=== PATIENT | female | born 1930 | race Caucasian/White ===

== ENCOUNTER 2016-11-29 15:50 | Emergency (ER) | payer MEDICARE, OTHER ==
[2016-11-29 15:50] VITALS: BMI 21.6
[2016-11-29 16:09] VITALS: TEMP 98.5
[2016-11-29 16:31] LABS: AUTOMATED BASOPHIL 0.8 % (0-2); AUTOMATED LYMPH 25.4 % (17-44); AUTOMATED MONOCYTE 11.5 % (3-10); AUTOMATED NEUTROPHIL 60.3 % (45-76); MPV 8.2 fL (7.4-10.4)
[2016-11-29 16:41] LABS: BLOOD UREA NITROGEN 11 MG/DL (7-17); CALC CORRECTED 8.9 MG/DL (8.4-10.2); CALCIUM 8.7 MG/DL (8.4-10.2); CALCULATED OSMOLALITY 270 MOs/Kg (270-290); CHLORIDE 103 mEq/L (98-107); GLUCOSE 95 MG/DL (70-99); SODIUM LEVEL 141 mEq/L (137-146); TOTAL PROTEIN 7.2 G/DL (6.3-8.2)
[2016-11-29 16:42] LABS: PARTIAL THROMB. TIME 25.4 SEC (22-35)
--- NOTE | 2016-11-29 17:10 | DIRPT ---
CLINICAL DATA: Shortness of breath. Nonproductive cough. EXAM: CHEST - 2 VIEW COMPARISON: 11/03/2016 FINDINGS: The heart size and mediastinal contours are within normal limits. Stable bibasilar pulmonary scarring. There is no evidence of pulmonary edema, consolidation, pneumothorax, nodule or pleural fluid. The visualized skeletal structures are unremarkable. IMPRESSION: No active disease. Electronically Signed By: Juan Forte M.D. On: 11/29/2016 17:07
--- NOTE | 2016-11-29 17:28 | EDPRACDOC ---
- General Information Chief Complaint: Dyspnea/Resp distress Stated Complaint: SHORTNESS OF BREATH Time Seen by Provider: 11/29/16 15:57 Information Source: Patient Mode Of Arrival: Ambulance Home Medications: Home Medications Clopidogrel Bisulfate [Plavix] 75 mg PO QHS 04/15/16 Amlodipine [Norvasc] 5 mg PO DAILY 10/18/16 Ipratropium [Atrovent Hfa] 2 puff INH QID 11/29/16 Levofloxacin [Levaquin] 750 mg PO DAILY #7 tablet 11/29/16 Allergies/Adverse Reactions: Allergies Allergy/AdvReac Type Severity Reaction Status Date / Time azithromycin Allergy Hives* Verified 11/29/16 16:05 meclizine HCl [From Antivert] Allergy Itching Verified 11/29/16 16:05 prednisone Allergy Itching Verified 11/29/16 16:05 - History of Present Illness HPI: PT PRESENTS WITH PROGRESSIVE DYSPNEA THROUGHOUT THE DAY TODAY WITH INCREASED INHALER USAGE. Shortness of Breath: Moderate Relevant History: Denies: Asthma, COPD Cough: Reports: Non-productive SOB Worsens with: Reports: Exertion SOB Improves with: Reports: Inhaler, Rest Associated Signs and symptoms: Reports: Cough. Denies: Fever, Nasal Symptoms - Treatment Prior to ED Arrival Reported Medications/Treatment [employer] Meds/Treatments Given O2 via Cannula IV Yes ED Past Medical History - History Reviewed Yes Nurses notes reviewed and agree except as marked - Patient Medical History Cardiac History: Reports: Hypertension, Hypercholesterolemia, Syncope Respiratory History: Denies: Asthma, COPD, Asbestosis, Emphysema Psychological History: Denies: Depression, Substance Use Disorder Systemic History: Reports: Anemia, Hypothyroidism (Currently not taking any Synthroid.). Denies: Cancer Surgical History: Reports: Other (THYROID) - Family Medical History Reports: Hypertension (MOM), Cancer (LUNG-DAD, DAUGHTER-BREAST), Cardiac Disorders (DAD, BROTHER) - Social Medical History Smoking Status: Never smoker Social History: Denies: Substance Use Disorder Lives In: Home EDM Review of Systems - Review of Systems ROS Negative Except as Marked: Yes All systems reviewed and were negative except as marked Constitutional: Fatigue, Weakness. negative: Fever Respiratory: Cough, Shortness of Breath. negative: Sputum, Asthma Cardiovascular: negative: Chest Pain Gastrointestinal: negative: Nausea, Pain, Vomiting Psychiatric: Anxiety - Physical Exam Constitutional: Alert Oriented to: Time, Person, Place Last recorded Vital Signs: Last Vital Signs Temp 98.5 F 11/29/16 16:05 Pulse 85 11/29/16 17:25 Resp 20 11/29/16 17:25 BP 135/78 11/29/16 17:25 Pulse Ox 94 11/29/16 17:25 Oxygen Pulse Oxygen Saturation 94 O2 Device Room Air Oxygen Flow Rate Fraction of Inspired Oxygen ( FIO2) - HEENT Head: negative: Deformity, Laceration Eye Exam: negative: Conjunctival Injection, Pale Conjunctiva Oropharynx: negative: Membranes Dry Nose: negative: Congestion, Discharge Neck: negative: Limited ROM - Respiratory/Cardiovascular Respiratory: Normal - CTA. negative: Accessory Muscle Use, Diminished, Tachypnea Cardiovascular: negative: Bradycardia, Tachycardia, Irregular - GI Auscultation: Normal Palpation: Normal Tenderness: Non tender - Musculoskeletal Extremities: Pedal Pulse (PALPABLE), Radial Pulse (PALPABLE). negative: Calf Tenderness, Pedal Edema - Integumentary Skin: Warm, Dry. negative: Rash - Neurologic Memory Impaired: Normal Motor Function: Normal Mood Description: Anxious, Appropriate Thought: Coherent Perception: Normal ED SOB MDM - Results Result Diagrams: 11/29/16 16:03 11/29/16 16:03 Results: WBC 7.4 xk/uL (3.8-10.8) 11/29/16 16:03 RBC 5.08 xM/uL (4.20-5.40) 11/29/16 16:03 Hgb 15.2 g/dL (12.0-16.0) 11/29/16 16:03 Hct 44.8 % (36-47) 11/29/16 16:03 MCV 88 fL (81-99) 11/29/16 16:03 MCH 29.9 pg (27-32) 11/29/16 16:03 MCHC 33.9 g/dl (33-36) 11/29/16 16:03 RDW 15.7 % (11.5-14.5) H 11/29/16 16:03 Plt Count 184 xk/uL (130-400) 11/29/16 16:03 MPV 8.2 fL (7.4-10.4) 11/29/16 16:03 Neut % (Auto) 60.3 % (45-76) 11/29/16 16:03 Lymph % (Auto) 25.4 % (17-44) 11/29/16 16:03 Wharton % (Auto) 11.5 % (3-10) H 11/29/16 16:03 Eos % (Auto) 2.0 % (0-5) 11/29/16 16:03 Baso % (Auto) 0.8 % (0-2) 11/29/16 16:03 Absolute Neuts (auto) 4.44 xk/uL (1.7-8.2) 11/29/16 16:03 Absolute Lymphs (auto) 1.85 xk/uL (0.65-4.75) 11/29/16 16:03 PT 10.7 SEC (9.2-11.2) 11/29/16 16:03 INR 1.0 11/29/16 16:03 APTT 25.4 SEC (22-35) 11/29/16 16:03 Sodium 141 mEq/L (137-146) 11/29/16 16:03 Potassium 3.8 mEq/L (3.5-5.1) 11/29/16 16:03 Chloride 103 mEq/L (98-107) 11/29/16 16:03 Carbon Dioxide 27 mMOL/L (22-33) 11/29/16 16:03 Anion Gap 15 mEq/L (8-16) 11/29/16 16:03 BUN 11 MG/DL (7-17) 11/29/16 16:03 Creatinine 0.50 MG/DL (0.52-1.04) L 11/29/16 16:03 Estimated GFR (MDRD) > 60 mL/min (>=60) 11/29/16 16:03 Glucose 95 MG/DL (70-99) 11/29/16 16:03 Calculated Osmolality 270 MOs/Kg (270-290) 11/29/16 16:03 Lactic Acid 0.8 mEq/L (0.7-2.1) 11/29/16 16:45 Calcium 8.7 MG/DL (8.4-10.2) 11/29/16 16:03 Corrected Calcium 8.9 MG/DL (8.4-10.2) 11/29/16 16:03 Total Bilirubin 0.6 MG/DL (0.2-1.3) 11/29/16 16:03 AST 27 IU/L (14-36) 11/29/16 16:03 ALT 15 IU/L (9-52) 11/29/16 16:03 Alkaline Phosphatase 59 IU/L (55-165) 11/29/16 16:03 Troponin I < 0.01 ng/mL (<.04) 11/29/16 16:03 Total Protein 7.2 G/DL (6.3-8.2) 11/29/16 16:03 Albumin 3.8 G/DL (3.5-5.0) 11/29/16 16:03 Lab Results 11/29/16 11/29/16 11/29/16 16:45 16:03 16:03 WBC 7.4 RBC 5.08 Hgb 15.2 Hct 44.8 MCV 88 MCH 29.9 MCHC 33.9 RDW 15.7 H Plt Count 184 MPV 8.2 Neut % (Auto) 60.3 Lymph % (Auto) 25.4 Wharton % (Auto) 11.5 H Eos % (Auto) 2.0 Baso % (Auto) 0.8 Absolute Neuts (auto) 4.44 Absolute Lymphs (auto) 1.85 PT 10.7 INR 1.0 APTT 25.4 Sodium Potassium Chloride Carbon Dioxide Anion Gap BUN Creatinine Estimated GFR (MDRD) Glucose Calculated Osmolality Lactic Acid 0.8 Calcium Corrected Calcium Total Bilirubin AST ALT Alkaline Phosphatase Troponin I Total Protein Albumin 11/29/16 16:03 WBC RBC Hgb Hct MCV MCH MCHC RDW Plt Count MPV Neut % (Auto) Lymph % (Auto) Wharton % (Auto) Eos % (Auto) Baso % (Auto) Absolute Neuts (auto) Absolute Lymphs (auto) PT INR APTT Sodium 141 Potassium 3.8 Chloride 103 Carbon Dioxide 27 Anion Gap 15 BUN 11 Creatinine 0.50 L Estimated GFR (MDRD) > 60 Glucose 95 Calculated Osmolality 270 Lactic Acid Calcium 8.7 Corrected Calcium 8.9 Total Bilirubin 0.6 AST 27 ALT 15 Alkaline Phosphatase 59 Troponin I < 0.01 Total Protein 7.2 Albumin 3.8 - EKG EKG #1 EKG Time: 16:22 -: Yes EKG interpreted by me Rate: bpm: 900 Biggers: LAD Rhythm: NSR Block: LBBB Decision Time to Discharge: 17:53 - Departure Yes I personally saw and evaluated the patient. Disposition: Home Condition: Stable Final Diagnosis: Dyspnea Qualifiers: Dyspnea type: unspecified Qualified Code(s): R06.00 - Dyspnea, unspecified Instructions: Dyspnea (ED) Education/Counseling Given To: Patient Education/Counseling Given Regarding: Diagnosis, Treatment, Prognosis, Follow Up Referrals: Doc Brasher MD [Primary Care Provider] - Call for Appointment Prescriptions: Levofloxacin [Levaquin] 750 mg PO DAILY #7 tablet Additional Instructions: ALBUTEROL INHALER EVERY 4 HOURS NEEDED. MAY BE MORE FREQUENT IF PERSISTENT SHORTNESS OF BREATH.
[2016-11-29] MEDS ORDERED: ALBUTEROL 6.7 GM MDI INH ONE (17:53)
[2016-11-29] MEDS ORDERED: LEVOFLOXACIN 750 MG TAB PO ONE (17:53)
[2016-11-29 18:27] VITALS: BP 130/69; PULSE 89
== END 2016-11-29 18:30 | disposition home or self-care (01) ==
LOC: ED 15:50
DX: R06.00 Dyspnea, unspecified (principal)
CPT/HCPCS: 71020; 80053; 83605; 84484; 85025; 85610; 85730; 87040; 87804; 93005; 94640; 94664; 99283; A9270; J3490

== ENCOUNTER 2016-12-12 13:34 | Observation (INO) | payer MEDICARE, OTHER ==
--- NOTE | 2016-12-12 14:04 | EDPRACDOC ---
- General Information Stated Complaint: CP Time Seen by Provider: 12/12/16 13:40 Information Source: Patient Mode Of Arrival: Ambulance Home Medications: Home Medications Clopidogrel Bisulfate [Plavix] 75 mg PO QHS 04/15/16 Amlodipine [Norvasc] 5 mg PO DAILY 10/18/16 Ipratropium [Atrovent Hfa] 2 puff INH QID 11/29/16 Albuterol Sulfate [Proventil Hfa] 2 puff INH Q4-6H PRN 12/12/16 Aspirin [Aspirin EC] 81 mg PO MOWEFR 12/12/16 Allergies/Adverse Reactions: Allergies Allergy/AdvReac Type Severity Reaction Status Date / Time azithromycin Allergy Hives* Verified 12/12/16 14:41 meclizine HCl [From Antivert] Allergy Itching Verified 12/12/16 14:41 prednisone Allergy Itching Verified 12/12/16 14:41 - History of Present Illness HPI: DYSPNEA ON EXERTION FOR SEVERAL DAYS. AGG ACTIVITY, ALLEV BY REST. NO FEVERS. SEEN THIS ED SEVERAL TIMES FOR SAME, CT PULM ANGIO WNL LAST MONTH. STRESS TEST 4 MONTHS AGO WNL. SEEN PCP, SPIROMETRY WNL LAST WEEK. EKG CHANGE TODAY, TO ED VIA EMS FOR EVAL AND RECOMMENDED STRESS TEST. PCP CONCERNED FOR ANGINAL EQUIVILANT. ED Past Medical History - History Reviewed Yes Nurses notes reviewed and agree except as marked - Patient Medical History Cardiac History: Reports: Hypertension, Hypercholesterolemia, Syncope Respiratory History: Denies: Asthma, COPD, Asbestosis, Emphysema Psychological History: Reports: Anxiety. Denies: Depression, Substance Use Disorder Systemic History: Reports: Anemia, Hypothyroidism (Currently not taking any Synthroid.). Denies: Cancer Surgical History: Reports: Other (THYROID) - Family Medical History Reports: Hypertension (MOM), Cancer (LUNG-DAD, DAUGHTER-BREAST), Cardiac Disorders (DAD, BROTHER) - Social Medical History Smoking Status: Never smoker Social History: Denies: Substance Use Disorder ETOH: None Substance Abuse: None Lives In: Home EDM Review of Systems - Review of Systems ROS Negative Except as Marked: Yes All systems reviewed and were negative except as marked - Physical Exam Constitutional: Alert (Awake), No apparent distress Oriented to: Time, Person, Place Last recorded Vital Signs: Oxygen Pulse Oxygen Saturation O2 Device Oxygen Flow Rate Fraction of Inspired Oxygen ( FIO2) - HEENT Head: Normal ( normocephalic) Eye Exam: Normal (PERRL, EOMI, Sclera white) Oropharynx: Normal (Pharynx:Moist without exudate,Gums-no swelling) Nose: No Symptoms Reported (septum midline) Neck: Normal (FROM, trachea at midline) - Respiratory/Cardiovascular Respiratory: Normal - CTA (BBS clear to auscultation without adventitious sounds ) Cardiovascular: Normal (RRR without murmur, gallop or rub) - GI Auscultation: Normal (NABS) Palpation: Normal (Soft,No rebound or guarding, non distended) Tenderness: Non tender Domingo's Sign: Negative - Musculoskeletal Back: Normal (Non-Tender) Extremities: Normal (Normal tone, Pulses 2+ No cyanosis or edema, FROM) - Integumentary Skin: Normal, Warm, Dry Lymphatics: Normal (no adenopathy) - Neurologic Memory Impaired: Normal Motor Function: Normal (Normal tone, Pulses 2+ No cyanosis or edema, FROM) Cranial Nerve: Normal (CN II-X11 intact sensation, strength 5/5) Cerebellar: Normal Mood Description: Normal Perception: Normal ED SOB MDM - Results Result Diagrams: 12/12/16 13:50 12/12/16 13:50 - EKG EKG #1 EKG Time: 13:45 -: Yes EKG interpreted by me Rate: bpm: 91 Harvey: LAD Rhythm: NSR Block: LBBB Hypertrophy: None ST: Nonsp Comparison: 11/29/16 (STILL LBBB, UNCHANGED) - Departure Disposition: Admit IP To This Hospital Condition: Stable Final Diagnosis: Anginal equivalent Dyspnea Qualifiers: Dyspnea type: dyspnea on exertion Qualified Code(s): R06.09 - Other forms of dyspnea Referrals: Doc Brasher MD [Primary Care Provider] - One Week Prescriptions: No Action Clopidogrel Bisulfate [Plavix] 75 mg PO QHS Amlodipine [Norvasc] 5 mg PO DAILY Ipratropium [Atrovent Hfa] 2 puff INH QID Aspirin [Aspirin EC] 81 mg PO MOWEFR Albuterol Sulfate [Proventil Hfa] 2 puff INH Q4-6H PRN PRN Reason: Shortness Of Breath Decision to Admit Time: 15:30 Decision to admit date: 12/12/16 Decision to admit: from ED - Physician Consulted Hospitalist Time Called: 15:30 Provider Called: Joce Walker Time Upholsterer Inside Returned Call: 15:30
[2016-12-12 14:07] LABS: AUTOMATED BASOPHIL 0.6 % (0-2); AUTOMATED MONOCYTE 9.8 % (3-10); AUTOMATED NEUTROPHIL 63.6 % (45-76); MPV 8.4 fL (7.4-10.4)
[2016-12-12 14:23] LABS: PARTIAL THROMB. TIME 26.6 SEC (22-35)
[2016-12-12 14:26] LABS: BLOOD UREA NITROGEN 10 MG/DL (7-17); CALCIUM 9.1 MG/DL (8.4-10.2); CALCULATED OSMOLALITY 270 MOs/Kg (270-290); CHLORIDE 102 mEq/L (98-107); GLUCOSE 98 MG/DL (70-99); SODIUM LEVEL 141 mEq/L (137-146); TOTAL PROTEIN 7.8 G/DL (6.3-8.2)
--- NOTE | 2016-12-12 14:49 | DIRPT ---
CLINICAL DATA: Shortness of breath. Dyspnea on exertion for several days. EXAM: CHEST 2 VIEW COMPARISON: 11/29/2016 and 11/03/2016 FINDINGS: Heart size and pulmonary vascularity are normal. No infiltrates or effusions. The lungs do appear slightly hyperinflated with increased AP diameter of the chest suggestive of emphysema. Extensive calcification in the thoracic aorta. No acute osseous abnormality. IMPRESSION: No acute abnormalities. Hyper in inflation of the lungs suggestive of but not diagnostic for emphysema. Electronically Signed By: Pedrito Alvarenga M.D. On: 12/12/2016 14:46
[2016-12-12] MEDS ORDERED: NITROGLYCERINE 2 % OINTMENT PACK TOP ONE (15:29)
[2016-12-12] MEDS ORDERED: ASPIRIN (CHEWABLE) 81 MG TAB PO ONE (15:29)
[2016-12-12] MEDS ORDERED: ENOXAPARIN 60 MG/0.6 ML PFS SQ ONE (15:35)
[2016-12-12] MEDS ORDERED: ACETAMINOPHEN 325 MG/TAB TABLET PO PRN (15:37)
[2016-12-12] MEDS ORDERED: ONDANSETRON HCL 4 MG/2 ML VIAL IV PRN (15:37)
[2016-12-12] MEDS ORDERED: METOCLOPRAMIDE 10 MG/2 ML VIAL IV PRN (15:37)
[2016-12-12] MEDS ORDERED: BENZONATATE 100 MG PERLES PO PRN (15:37)
[2016-12-12] MEDS ORDERED: SIMETHICONE 80 MG TAB PO PRN (15:37)
[2016-12-12] MEDS ORDERED: DOCUSATE-SENNA CONCENTRATE TAB PO PRN (15:37)
[2016-12-12] MEDS ORDERED: TEMAZEPAM 15 MG CAP PO PRN (15:37)
[2016-12-12] MEDS ORDERED: ACETAMINOPHEN 650 MG SUPP PR PRN (15:37)
[2016-12-12] MEDS ORDERED: NITROGLYCERINE 0.4 MG TAB SL PRN (15:37)
[2016-12-12] MEDS ORDERED: ALBUTEROL 6.7 GM MDI INH PRN (15:39)
--- NOTE | 2016-12-12 15:56 | HISTPHYS ---
- Chief Complaint chest pain - History of Present Illness Jo Stokes is an 86 year old woman who is in fairly good health. She has had multiple visits to the ED complaining of vague chest discomfort and shortness of breath. Today she presented to her primary care provider, Dr. Doc Brasher, with similar complaints, and he felt she should have a stress test to evaluate her for coronary artery disease. 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 She presents today describing shortness of breath and tightness in her chest that started four days ago. She denies wheezing, cough or chest congestion, and has not had any sputum production. She has a tendency to tell me not her symptoms, but what other people told her she might have- ie- "a touch of pneumonia." She does say she is feeling much better now and thinks she is well enough to go home. She has never smoked, but has a history of hyperlipidemia and hypertension, and raises chickens for extra income. - Medical History Cardiac History: Reports: Hypertension, Hypercholesterolemia, Syncope Respiratory History: Reports: Cough. Denies: Asthma, COPD, Asbestosis, Emphysema GI/ History: Reports: No Significant History Musculoskeletal History: Reports: Osteoarthritis Systemic History: Reports: Anemia, Hypothyroidism (Currently not taking any Synthroid.). Denies: Cancer Neurological History: Reports: Cerebrovascular Accident (TIAs) Psychological History: Reports: Anxiety. Denies: Depression, Alcoholism, Substance Use Disorder - Surgical History Reports: Appendectomy, Other (THYROIDECTOMY) - Medictions/Allergies Allergies azithromycin Allergy (Verified 12/12/16 14:41) Hives* meclizine HCl [From Antivert] Allergy (Verified 12/12/16 14:41) Itching prednisone Allergy (Verified 12/12/16 14:41) Itching Current Medication List: Reviewed Home Medications Clopidogrel Bisulfate [Plavix] 75 mg PO QHS 04/15/16 Amlodipine [Norvasc] 5 mg PO DAILY 10/18/16 Ipratropium [Atrovent Hfa] 2 puff INH QID 11/29/16 Albuterol Sulfate [Proventil Hfa] 2 puff INH Q4-6H PRN 12/12/16 Aspirin [Aspirin EC] 81 mg PO MOWEFR 12/12/16 - Family History Reports: Hypertension (MOM), Cancer (LUNG-DAD, DAUGHTER-BREAST), Cardiac Disorders (DAD, BROTHER) - Social History Travel Outside of [place] in the Last 3 Months?: No Lives: with Spouse Smoking Status: Never smoker Social History: Denies: Alcohol Use, Substance Use Disorder - Review of Systems Constitutional: No Symptoms Reported. negative: Chills, Fever, Diaphoresis, Loss of Appetite, Weakness Eyes: No Symptoms Reported, Glaucoma, Other (hx of retinal tear OS) Ears: No Symptoms Reported Nose: No Symptoms Reported Mouth: Denture, Other (geographic tongue) Throat/Neck: No Symptoms Reported Respiratory: Cough, Shortness of Breath, Dyspnea. negative: Wheezing, Sputum, Asthma Cardiovascular: Chest Pain, Orthopnea. negative: Edema, PND, Syncope Gastrointestinal: negative: Nausea, Vomiting, Abdominal Pain, Heartburn Genitourinary: Postmenopause Neurological: Dizziness, Headache, Weakness Musculoskeletal:: Osteoarthritis Integumentary: No Symptoms Reported Allergic/Immunologic: No Symptoms Reported Hematologic: No Symptoms Reported Endocrine: Hypothyroidism Psychiatric: Anxiety - Physical Exam Vital Signs: Initial Vitals Temperature 98.1 F 12/12/16 13:40 Pulse Rate 93 12/12/16 13:40 Respiratory Rate 16 12/12/16 13:40 Blood Pressure 168/83 12/12/16 13:40 Pulse Oxygen Saturation 95 12/12/16 13:40 Constitutional: No apparent distress, Alert, Well nourished, Well appearing Oriented to: Time, Person, Place - HEENT Head: Normal Eye: Normal (PERRL:EOMI) Oropharynx: Other (dentures). negative: Drooling, Exudate, Red Tympanic Membrane: Dull ENT EAC: Cerumen Nose: No Symptoms Reported. negative: Bleeding, Congestion, Discharge, Deformity Respiratory: Normal - CTA Cardiovascular: Normal (regular rhythm and rate, no murmur) - GI Auscultation: Normal Palpation: Normal Tenderness: Non tender. negative: Guarding, Rebound, Rigidity Domingo's Sign: Negative Rectal Exam: Deferred - Musculoskeletal Back: Normal Extremities: Normal, Pedal Pulse (normal), Radial Pulse (normal). negative: Clubbing, Cyanosis, Edema Spine: non-tender, normal alignment, normal inspection - Integumentary Skin: Warm, Cool Lymphatics: Normal - Neurologic Memory Impaired: Normal Motor Function: Normal Cranial Nerve: Normal Cerebellar: Normal Mood Description: Normal Thought: Coherent Perception: Normal - Focused CV Perfusion Exam Vital Signs: Last Vital Signs Temp 98.1 F 12/12/16 13:40 Pulse 82 12/12/16 15:54 Resp 20 12/12/16 15:54 BP 158/71 12/12/16 15:54 Pulse Ox 95 12/12/16 15:54 - Lab Results Laboratory Tests 12/12/16 12/12/16 12/12/16 13:50 13:50 13:50 WBC 6.5 Hgb 15.7 Hct 46.8 RDW 16.2 H Plt Count 206 Neut % (Auto) 63.6 Lymph % (Auto) 24.0 Bourbon % (Auto) 9.8 Eos % (Auto) 2.0 PT 10.6 INR 1.0 APTT 26.6 D-Dimer Quant (PE/DVT) Sodium 141 Potassium 3.7 Chloride 102 Carbon Dioxide 28 Anion Gap 15 BUN 10 Creatinine 0.50 L Estimated GFR (MDRD) > 60 Glucose 98 Calculated Osmolality 270 Calcium 9.1 AST 35 ALT 24 Troponin I < 0.01 Jsu-R-Aepobqnxhed Pept 311 Total Protein 7.8 Albumin 4.2 12/12/16 13:50 WBC Hgb Hct RDW Plt Count Neut % (Auto) Lymph % (Auto) Bourbon % (Auto) Eos % (Auto) PT INR APTT D-Dimer Quant (PE/DVT) 472 Sodium Potassium Chloride Carbon Dioxide Anion Gap BUN Creatinine Estimated GFR (MDRD) Glucose Calculated Osmolality Calcium AST ALT Troponin I Mle-G-Zlzhsasryxv Pept Total Protein Albumin Laboratory Tests 07/05/16 23:05 TSH 1.66 Free T4 1.20 Free T3 4.90 - Diagnostic Findings CXR: IMPRESSION: No acute abnormalities. Hyper in inflation of the lungs suggestive of but not diagnostic for emphysema. Electronically Signed By: Pedrito Alvarenga M.D. On: 12/12/2016 14:46 EKG: LBBB, sinus rhythm, 91 bpm, no significant change from prior tracing - Assessment (1) Anginal equivalent I20.8 - OTHER FORMS OF ANGINA PECTORIS Acute Present on Admission: Yes Place patient in observation, evaluate for possible anginal equivalent. With LBBB, she may have coronary artery disease, and yet doesn't recall ever having had a heart attack. Will do stress echo since she just had a negative Lexiscan stress test 3 months ago. (2) Dyspnea R06.00 - DYSPNEA, UNSPECIFIED Acute Present on Admission: Yes Qualifiers: Dyspnea type: dyspnea on exertion Qualified Code(s): R06.09 - Other forms of dyspnea May or may not be due to pulmonary disorder-No known hx of asthma (3) Anxiety about health F41.8 - OTHER SPECIFIED ANXIETY DISORDERS Acute Present on Admission: Yes Offer low dose alprazolam PRN. (4) Hypertension I10 - ESSENTIAL (PRIMARY) HYPERTENSION Acute Present on Admission: Yes Qualifiers: Hypertension type: essential hypertension Qualified Code(s): I10 - Essential (primary) hypertension Patient takes amlodipine 10 mg daily at home. Continue home medication. Add beta michael while ruling out MN. (5) Hypercholesterolemia E78.0 - PURE HYPERCHOLESTEROLEMIA * DO NOT USE * Acute Present on Admission: Yes Continue medications. Patient currently taking Vytorin 10/20 on a daily basis. Follow-up lipid studies which were just done with primary care physician. (6) Left bundle branch block I44.7 - LEFT BUNDLE-BRANCH BLOCK, UNSPECIFIED Chronic Present on Admission: Yes LBBB is old, and noted on previous EKGs. Plan: Noted. (7) Hypothyroidism E03.9 - HYPOTHYROIDISM, UNSPECIFIED Ruled-out Present on Admission: Yes Qualifiers: Hypothyroidism type: postoperative Qualified Code(s): E89.0 - Postprocedural hypothyroidism Patient carries a diagnosis of hypothyroidism but does not appear to be on any thyroid medications. S/P subtotal thyroidectomy. Thyroid labs from last June all within normal limits. Case Care Discussed with: Patient, Family, Nursing Staff Total Time: 60 min
[2016-12-12] MEDS ORDERED: IPRATROPIUM INH SCH (16:00)
[2016-12-12] MEDS ORDERED: MDI INH SCH (16:00)
[2016-12-12] MEDS ORDERED: Pharmacy Order Set Alert SCH (16:00)
[2016-12-12] MEDS: MDI INH SCH ×3 (16:27→20:20)
[2016-12-12] MEDS: IPRATROPIUM INH SCH ×3 (16:27→20:20)
[2016-12-12] MEDS ORDERED: Vaccine Screening Complete SCH (17:00)
[2016-12-12] MEDS ORDERED: ALPRAZOLAM 0.25 MG TAB PO PRN (17:46)
[2016-12-12] MEDS: CARVEDILOL 3.125 MG TAB PO SCH (21:00)
[2016-12-12] MEDS ORDERED: CLOPIDOGREL 75 MG TAB PO SCH (21:00)
[2016-12-13 04:18] VITALS: BMI 21.3
[2016-12-13 06:32] LABS: LDL (calc.) 112.6 MG/DL (<100); VLDL (calc.) 11.4 MG/DL (5-40)
[2016-12-13] MEDS: IPRATROPIUM INH SCH ×2 (08:01→11:22)
[2016-12-13] MEDS: MDI INH SCH ×2 (08:01→11:22)
[2016-12-13] MEDS ORDERED: AMLODIPINE 5 MG TAB PO SCH (09:00)
[2016-12-13] MEDS ORDERED: PERFLUTREN LIPID MICROSPHERE 1.5 ML VIAL IV ONE (10:00)
--- NOTE | 2016-12-13 11:30 | CAPUECHO2 ---
INDICATION: RECURRENT CHEST PAIN HEIGHT: 167.6 cm (5 ft 6.0 in) WEIGHT: 60.8 kg (134.0 lbs) BP: 160/98 BSA: 1.112613 m FINDINGS ------- Study quality:This was a technically difficult study with suboptimal views. Definity contrast used. Protocol:Utilizing the modified Doron protocol the patient was exercised for 4 minutes, 54 second s, achieving a maximum heart rate of 137 bpm , which is 100% of predicted maximal heart rate. The re was physiologic heart rate and blood pressure response to exercise. There were no ischemic change s noted. No diagnostic ECG changes are noted. Occasional PVCs and a rare couplet is noted. Heart rate and blood pressure:Max Heart Rate: 137 bpm % of Max Predicted Heart Rate: 100% Rest Hea rt Rate: 77 bpm Rest BP: 160/98 mmHg Max BP: 160/98 mmHg Mets Achieved:3.30 mets Target HR: 115 bpm Reason for stopping:The test was stopped because the target heart rate was achieved. No chest pain Exercise tolerance:This level of exercise represents a good exercise tolerance for age. ELECTROCARDIOGRAM: Resting ECG:The underlying rhythm is normal sinus rhythm with complete Left Bu ndle Branch Block. Post exercise ECG:In response to stress, the ECG showed no diagnostic ST-T wave changes. Persisten t LBBB. Occasional PVCs. No V tach. Hemodynamic response:There were normal blood pressure and heart rate responses to stress. ECHOCARDIOGRAM: Resting echo findings:Technically difficult, even with Definity contrast. Poor ap ical windows. The left ventricle size is normal. Upper normal wall thickness. Abnormal septal mo tion, mildly depressed LVEF, est 40-45% Peak exercise echo findings:Echo images were acquired at peak stress which demonstrated abnormal sep maria c motion. Hyperdynamic response in the inferior and lateral mast. LVEF improves to 50-55%, no new segmental abnormality. CONCLUSIONS 1. Normal functional exercise capacity for age: 3.3 METS No limiting anginal symptoms. 2. Re sting complete LBBB, persists during exercise, with occasional PVCs, no malignant arrhythmias 3. No ECG or 2D echocardiographic evidence of inducible ischemia to achieved workload. 4. technicall y difficult, sub-optimal echo images even with Definity contrast: poor apical windows Abnorma l septal motion c/w LBBB, and resting LVEF appears mildly depressed. Persistent abnormal sept al motion during stress, with normal hyperdynamic response inferior and lateral, improved LVEF to 50-55%. NEGATIVE TREADMILL STRESS ECHO for ischemia at target HR. c c: DR. Doc Brasher Electronically Signed By: Fuad Garcia MD-- Electronically Signed On: 11:28:30
[2016-12-13] MEDS: CARVEDILOL 3.125 MG TAB PO SCH (11:32)
[2016-12-13 11:59] VITALS: BP 134/79; TEMP 98
--- NOTE | 2016-12-13 15:44 | PCM.DCS92 ---
- Final/Secondary Discharge Diagnosis (1) Anginal equivalent Acute I20.8 - OTHER FORMS OF ANGINA PECTORIS Present on Admission: Yes Comment: Placed patient in observation, evaluated for possible anginal equivalent. With LBBB, she may have coronary artery disease, and yet doesn't recall ever having had a heart attack. She had 3 normal troponins. Did stress echo since she just had a negative Lexiscan stress test 3 months ago. (2) Dyspnea Acute R06.00 - DYSPNEA, UNSPECIFIED Present on Admission: Yes dyspnea on exertion R06.09 - Other forms of dyspnea Comment: May or may not be due to pulmonary disorder-No known hx of asthma (3) Anxiety about health Acute F41.8 - OTHER SPECIFIED ANXIETY DISORDERS Present on Admission: Yes Comment: Offer low dose alprazolam PRN. (4) Hypertension Acute I10 - ESSENTIAL (PRIMARY) HYPERTENSION Present on Admission: Yes essential hypertension I10 - Essential (primary) hypertension Comment: Patient takes amlodipine 10 mg daily at home. Continue home medication. Add beta michael while ruling out VT. (5) Hypercholesterolemia Acute E78.0 - PURE HYPERCHOLESTEROLEMIA * DO NOT USE * Present on Admission: Yes Comment: Continue medications. Patient currently taking Vytorin 10/20 on a daily basis. Follow-up lipid studies which were just done with primary care physician. (6) Left bundle branch block Chronic I44.7 - LEFT BUNDLE-BRANCH BLOCK, UNSPECIFIED Present on Admission: Yes Comment: LBBB is old, and noted on previous EKGs. Plan: Noted. No intervention needed at this time. (7) Hypothyroidism Ruled-out E03.9 - HYPOTHYROIDISM, UNSPECIFIED Present on Admission: Yes postoperative E89.0 - Postprocedural hypothyroidism Comment: Patient carries a diagnosis of hypothyroidism but does not appear to be on any thyroid medications. S/P subtotal thyroidectomy. Thyroid labs from last June all within normal limits. Discharge Disposition: Home Discharge Condition: Stable Cognitive Discharge Status: Unimpaired Fuctional Discharge Status: Independent Physician Follow up/Referrals: Doc Brasher MD [Primary Care Provider] - 12/19/16 3:00 pm Home Medications / New Prescriptions: New Alprazolam [Xanax] 0.25 mg PO Q8H PRN #30 tablet PRN Reason: Anxiety Or Agitation Continue Clopidogrel Bisulfate [Plavix] 75 mg PO QHS Amlodipine [Norvasc] 5 mg PO DAILY Ipratropium [Atrovent Hfa] 2 puff INH QID Aspirin [Aspirin EC] 81 mg PO MOWEFR Albuterol Sulfate [Proventil Hfa] 2 puff INH Q4-6H PRN PRN Reason: Shortness Of Breath O2 Device: Room Air Diet at Discharge: Heart Healthy Activity: No Restrictions Call Office For: Worsening Symptoms Discontinue use of:: Alcohol, All Types of Tobacco - DC Summary Notes Hospital Course Note:: Discharge summary on patient named BIRGIT STOKES admitted to [facility] on 12/12/16 by Brittney Melvin MD. Date of discharge is []. Birgit Stokes is an 86 year old woman who is in fairly good health. She has had multiple visits to the ED complaining of vague chest discomfort and shortness of breath. Today she presented to her primary care provider, Dr. Doc Brasher, with similar complaints, and he felt she should have a stress test to evaluate her for coronary artery disease. 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 She presents today describing shortness of breath and tightness in her chest that started four days ago. She denies wheezing, cough or chest congestion, and has not had any sputum production. She has a tendency to tell me not her symptoms, but what other people told her she might have- ie- "a touch of pneumonia." She does say she is feeling much better now and thinks she is well enough to go home. She has never smoked, but has a history of hyperlipidemia and hypertension, and raises chickens for extra income. Placed patient in observation, evaluated for possible anginal equivalent. With LBBB, she may have coronary artery disease, and yet doesn't recall ever having had a heart attack. She had 3 normal troponins. Did stress echo since she just had a negative Lexiscan stress test 3 months ago. STRESS ECHOCARDIOGRAM IS NORMAL, no evidence of ischemia. Patient is advised that anxiety may be a contributing factor. She has been offered a low dose of alprazolam 0.25 mg 1 tab PRN as needed for chest tightness. Total Time: 30 min Code: 54497 - Physical Exam Vital Signs: Last Vital Signs Temp 98 F 12/13/16 11:58 Pulse 70 12/13/16 14:00 Resp 18 12/13/16 11:58 BP 134/79 12/13/16 11:58 Pulse Ox 95 12/13/16 11:58 Oxygen Pulse Oxygen Saturation 95 O2 Device Room Air Oxygen Flow Rate Fraction of Inspired Oxygen ( FIO2) Constitutional: No apparent distress, Alert, Well nourished, Well appearing Oriented to: Time, Person, Place - HEENT Head: Normal Eye: Normal (PERRL:EOMI) Oropharynx: Other (dentures). negative: Drooling, Exudate, Red Tympanic Membrane: Dull ENT EAC: Cerumen Nose: No Symptoms Reported. negative: Bleeding, Congestion, Discharge, Deformity - Respiratory/Cardiovascular Respiratory: Normal - CTA Cardiovascular: Normal (regular rhythm and rate, no murmur) - GI Auscultation: Normal Palpation: Normal Tenderness: Non tender. negative: Guarding, Rebound, Rigidity Domingo's Sign: Negative Rectal Exam: Deferred - Musculoskeletal Back: Normal Extremities: Normal, Pedal Pulse (normal), Radial Pulse (normal). negative: Clubbing, Cyanosis, Edema - Integumentary Skin: Warm, Cool Lymphatics: Normal - Neurologic Memory Impaired: Normal Motor Function: Normal Cranial Nerve: Normal Cerebellar: Normal Mood Description: Normal Thought: Coherent Perception: Normal - Other Exam Other Exam Findings: Laboratory Tests 12/13/16 05:05 Glucose 84 Triglycerides 57 Cholesterol 171 LDL Cholesterol, Calc 112.6 H VLDL Cholesterol, Calc 11.4 HDL Cholesterol 47.0 Cholesterol/HDL Ratio 3.6 STRESS ECHO: CONCLUSIONS 1. Normal functional exercise capacity for age: 3.3 METS No limiting anginal symptoms. 2. Resting complete LBBB, persists during exercise, with occasional PVCs, no malignant arrhythmias 3. No ECG or 2D echocardiographic evidence of inducible ischemia to achieved workload. 4. technically difficult , sub-optimal echo images even with Definity contrast: poor apical windows Abnormal septal motion c/w LBBB, and resting LVEF appears mildly depressed. Persistent abnormal septal motion during stress, with normal hyperdynamic response inferior and lateral, improved LVEF to 50-55%. NEGATIVE TREADMILL STRESS ECHO for ischemia at target HR. cc: DR. Doc Brasher Electronically Signed By: Fuad Garcia MD--
[2016-12-13] MEDS ORDERED: ENOXAPARIN 40 MG/0.4 ML PFS SQ SCH (16:00)
[2016-12-13 16:18] VITALS: PULSE 83
--- NOTE | 2016-12-15 11:51 | CAPUEKG ---
[place], [place] Test Date: 2016-12-13 Pat Name: BIRGIT BEACH Department: Room: 447 Gender: Female Licensed Reactor Operator: CARLTON PEREZB: Requested By: Order Number: Reading MD: Fuad Garcia Measurements Intervals Quinter Rate: 65 P: 50 ID: [id number] QRS: -50 QRSD: 138 T: 49 QT: 498 QTc: 517 Interpretive Statements Normal sinus rhythm Left axis deviation Left bundle branch block No change from prior tracing. Abnormal ECG Electronically Signed On 12-15-16 11:51:25 EST by Fuad Garcia <[email or web address] [id number]
== END 2016-12-13 17:14 | disposition home or self-care (01) ==
LOC: ED 13:34 → PCU 15:37
PROVIDERS: ADMIT Family Medicine; ATTEND Family Medicine
DX: I20.8 Other forms of angina pectoris (principal); R06.00 Dyspnea, unspecified; F41.8 Other specified anxiety disorders; I10 Essential (primary) hypertension; E78.00 Pure hypercholesterolemia, unspecified; I44.7 Left bundle-branch block, unspecified; Z86.73 Personal history of transient ischemic attack (TIA), and cerebral infarction without residual deficits; Z79.02 Long term (current) use of antithrombotics/antiplatelets; Z79.899 Other long term (current) drug therapy; Z79.82 Long term (current) use of aspirin
CPT/HCPCS: 36415; 71020; 80053; 80061; 82947; 83880; 84484; 85025; 85379; 85610; 85730; 93005; 93306; 94640; 94664; 96372; 99284; G0378; J1650; J3490; Q9957